=== PATIENT | female | born 1990 | race Caucasian/White ===

== ENCOUNTER 2018-08-12 05:07 | Day surgery (SDC) | payer BC, OTHER ==
[2018-08-11 16:25] VITALS: BMI 39.3
[2018-08-12] MEDS ORDERED: LIDOCAINE HCL/PF 2% SDV 5ML VIAL ONE (09:48)
[2018-08-12] MEDS ORDERED: PROPOFOL 20 ML ONE ×2 (09:49→10:57)
[2018-08-12] MEDS ORDERED: oxyCODONE HCL 5 MG TABLET PO PRN ×3 (10:44→12:32)
[2018-08-12] MEDS ORDERED: ONDANSETRON 4 MG/2 ML VIAL IVPUSH PRN ×2 (10:44→12:32)
[2018-08-12] MEDS ORDERED: LACTATED RINGERS SOLUTION 1,000 ML IV SCH (10:45)
--- NOTE | 2018-08-12 10:50 | HP ---
History & Physical Update - Physical Physical: No Change - Assessment Assessment: No Change - Plan Plan: No Change (H&P reviwed , no cahanges , for hysteroscopy D&C, polypectomy)
[2018-08-12] MEDS ORDERED: MIDAZOLAM HCL 2 MG/2 ML SINGLE DOSE VIAL ONE (10:57)
[2018-08-12] MEDS ORDERED: GLYCOPYRROLATE 0.2 MG/1 ML VIAL ONE (11:07)
[2018-08-12] MEDS ORDERED: KETOROLAC TROMETHAMINE 30 MG/1 ML VIAL ONE (11:18)
[2018-08-12] MEDS ORDERED: IBUPROFEN 600 MG TABLET (FP) PO PRN (12:32)
[2018-08-12] MEDS ORDERED: IBUPROFEN 800 MG/8 ML IJ IVPB PRN (12:32)
[2018-08-12] MEDS ORDERED: ALPRAZolam 0.25 MG TABLET PO PRN (12:44)
[2018-08-12] MEDS ORDERED: ELECTROLYTE-148 SOLN 1,000 ML IV SCH (12:45)
[2018-08-12] MEDS ORDERED: ONDANSETRON 4 MG/2 ML VIAL IVPUSH ONE (13:04)
[2018-08-12] MEDS ORDERED: ONDANSETRON 4 MG/2 ML VIAL ONE (13:05)
--- NOTE | 2018-08-12 13:25 | OP ---
DATE OF OPERATION: 08/12/2018 PREOPERATIVE DIAGNOSES: Menometrorrhagia, severe anemia, endometrial polyp. POSTOPERATIVE DIAGNOSES: Menometrorrhagia, severe anemia, endometrial polyp. PROCEDURE: Hysteroscopy, dilatation and curettage, and polypectomy. SURGEON: Juan M Stoll MD ANESTHESIA: General. ANESTHESIOLOGIST: Rush Santiago MD ESTIMATED BLOOD LOSS: 25 mL DESCRIPTION OF OPERATION: Patient was taken to the operating room. Under adequate general anesthesia, in dorsal lithotomy position, examination under anesthesia revealed the external genitalia to be normal. Vagina was normal. Cervix was clean; no gross lesion. Uterus was normal size. Adnexa: No masses were palpable. Then, with the weighted speculum in the vagina, anterior lip of the cervix was grasped with a single-tooth tenaculum. Uterine cavity was sounded to 9 cm. Then, cervix was slightly dilated. The hysteroscope was introduced. Visualization of endocervical canal appeared to be normal. There were 2 polyps seen in the mid-lower part of the uterus anteriorly. Both cornual regions of the uterus were identified, and tubal ostia were noted. No other abnormality was noted. Endometrium appeared to be thickened and cystic. Then, first, the 2 polyps in the lower-mid body of the uterus were removed, and no active bleeding was seen at the site. Then, endometrium was curetted gently with a smooth curette. Patient tolerated the procedure well, left the OR in good condition. Belle [id number]
[2018-08-12 15:18] VITALS: TEMP 98.2
[2018-08-12 16:14] VITALS: BP 102/55; PULSE 105
--- NOTE | 2018-08-13 16:15 | PATH ---
Surgical Pathology Report Patient Name: ELLIOT GARCIA [facility]. Rec. #: [id number] /Age/Gender: 1990 (Age: 28) / F Account: [id number] Location: [facility] SURGICAL Taken: 08/12/2018 Received: 08/12/2018 Reported: 08/13/2018 Physicians: Juan M Stoll M.D. Specimen(s) Received A: POLYP ENDOMETRIAL B: ENDOMETRIAL CURETTINGS Clinical History Histeroscopy, Polypectomy Final Diagnosis A. ENDOMETRIAL POLYP, EXCISION: ENDOMETRIAL POLYPS. B. ENDOMETRIAL CURETTINGS: FRAGMENTS OF ENDOMETRIAL POLYP. SEPARATE FRAGMENTS OF PROLIFERATIVE ENDOMETRIAL. SEPARATE UNREMARKABLE ENDOCERVICAL TISSUE. Electronically Signed Rohan Trujillo M.D. Gross Description A. Received in formalin labeled "polyp endometrial," is a 2.2 x 1.8 x 0.3 cm aggregate of mantilla-pink, irregular to polypoid portions of soft tissue. The formalin is filtered and the specimen is entirely submitted in one cassette. B. Received in formalin labeled "endometrial curettings," is a 3.7 x 3.3 x 0.4 cm aggregate of mantilla-brown soft tissue fragments admixed with blood clot. The formalin is filtered and the specimen is entirely submitted in 2 cassettes. /08/12/201808/12/2018
== END 2018-08-12 16:15 | disposition home or self-care (01) ==
LOC: JASU-SURG 05:07
PROVIDERS: ATTEND Obstetrics & Gynecology
PROC: 0UJD8ZZ Inspection of Uterus and Cervix, Via Natural or Artificial Opening Endoscopic (ICD-10-PCS; 2018-08-12)
PROC: 0UB97ZX Excision of Uterus, Via Natural or Artificial Opening, Diagnostic (ICD-10-PCS; principal; 2018-08-12 10:30)
PROC: 0UDB7ZX Extraction of Endometrium, Via Natural or Artificial Opening, Diagnostic (ICD-10-PCS; 2018-08-12 10:30)
DX: N92.1 Excessive and frequent menstruation with irregular cycle (principal); D64.9 Anemia, unspecified; N84.0 Polyp of corpus uteri
CPT/HCPCS: 86850; 86900; 86901; 88305-TC; 94760

== ENCOUNTER 2020-03-09 16:14 | Emergency (ER) | payer BC, OTHER ==
[2020-03-09] MEDS ORDERED: KETOROLAC TROMETHAMINE 30 MG/1 ML VIAL IM ONE (16:28)
[2020-03-09] MEDS ORDERED: diazePAM 5 MG TABLET PO ONE (16:30)
[2020-03-09] MEDS ORDERED: KETOROLAC TROMETHAMINE 30 MG/1 ML VIAL ONE (16:32)
[2020-03-09 16:33] VITALS: BP 148/89; PULSE 98; TEMP 98.4; BMI 36.6
[2020-03-09] MEDS ORDERED: diazePAM 5 MG TABLET ONE (16:33)
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
--- NOTE | 2020-03-10 15:30 | EKG ---
Test Reason : Blood Pressure : / mmHG Vent. Rate : 091 BPM Atrial Rate : 091 BPM P-R Int : 144 ms QRS Dur : 080 ms QT Int : 368 ms P-R-T Axes : 048 -10 050 degrees QTc Int : 452 ms NORMAL SINUS RHYTHM NORMAL ECG NO PREVIOUS ECGS AVAILABLE Confirmed by ELEAZAR DEL RIO MD ([id number]) on 03/10/2020 3:29:17 PM Referred By: ALESSANDRO HERNANDEZ Confirmed By:ELEAZAR DEL RIO MD
== END 2020-03-09 18:00 | disposition home or self-care (01) ==
LOC: FER 16:14
PROC: 3E0233Z Introduction of Anti-inflammatory into Muscle, Percutaneous Approach (ICD-10-PCS; principal; 2020-03-09)
DX: M62.838 Other muscle spasm (principal); M79.601 Pain in right arm
CPT/HCPCS: 71046-TC-FY; 93005; 93971; 99285-25

== ENCOUNTER 2020-03-13 07:52 | Emergency (ER) | payer BC, OTHER ==
[2020-03-13 08:05] VITALS: BP 138/82; PULSE 94; TEMP 98.7; BMI 36.6
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
[2020-03-13] MEDS ORDERED: KETOROLAC TROMETHAMINE 60 MG/2 ML VIAL IM ONE (08:59)
[2020-03-13] MEDS ORDERED: hydrOXYzine PAMOATE 25 MG CAPSULE (FP) PO ONE ×2 (08:59→09:08)
[2020-03-13] MEDS ORDERED: METHOCARBAMOL 500 MG TABLET PO ONE (08:59)
[2020-03-13] MEDS ORDERED: METHOCARBAMOL 500 MG TABLET ONE (09:08)
[2020-03-13] MEDS ORDERED: KETOROLAC TROMETHAMINE 60 MG/2 ML VIAL ONE (09:08)
[2020-03-13 09:17] LABS: BASO % 0.5 % (0-2.0); EOS % 1.4 % (0-4.5); HEMOGLOBIN 13.7 GM/dl (10.7-15.3); LYMPH % 16.2 % (8-40); MCHC 32.7 g/dl (32.0-36.0); MEAN CELL VOLUME 88.8 fl (80-96); MONO % 5.6 % (3.8-10.2); NEUT % 76.3 % (42.8-82.8); PLATELET COUNT 273 K/MM3 (134-434); RBC 4.73 M/mm3 (3.60-5.2); RDW 14.8 % (11.6-15.6); WHITE BLOOD COUNT 11.7 K/mm3 (4.0-10.8)
[2020-03-13 09:22] LABS: ALBUMIN 3.8 g/dl (3.4-5.0); BILIRUBIN,TOTAL 0.7 mg/dl (0.2-1); CALCIUM 8.7 mg/dl (8.5-10); CREATININE 0.6 mg/dl (0.55-1.3); POTASSIUM 3.2 mmol/L (3.5-5.1); TOT PROT 6.8 g/dl (6.4-8.2)
[2020-03-13] MEDS ORDERED: POTASSIUM CHLORIDE TABS 20 MEQ TABLET.ER (FP) PO ONE ×2 (09:29→09:41)
--- NOTE | 2020-03-13 12:45 | EKG ---
Test Reason : Blood Pressure : / mmHG Vent. Rate : 098 BPM Atrial Rate : 098 BPM P-R Int : 154 ms QRS Dur : 080 ms QT Int : 340 ms P-R-T Axes : 064 016 037 degrees QTc Int : 434 ms NORMAL SINUS RHYTHM NORMAL ECG WHEN COMPARED WITH ECG OF 09-MAR-2020 16:52, NO SIGNIFICANT CHANGE WAS FOUND Confirmed by Félix Bates ([id number]) on 03/13/2020 12:45:36 PM Referred By: ANANTH PURCELL Confirmed By:Félix Bates
== END 2020-03-13 10:06 | disposition home or self-care (01) ==
LOC: FER 07:52
PROC: 3E0233Z Introduction of Anti-inflammatory into Muscle, Percutaneous Approach (ICD-10-PCS; principal; 2020-03-13)
DX: M79.631 Pain in right forearm (principal); R05 Cough; F41.0 Panic disorder [episodic paroxysmal anxiety]
CPT/HCPCS: 36415; 71046-TC-FY; 73070-TC-RT-FY; 73523-TC-FY; 80053; 82550; 84484; 85025; 93005; 99285-25

== ENCOUNTER 2020-03-25 05:09 | Day surgery (SDC) | payer BC, OTHER ==
[2020-03-24 10:40] VITALS: BMI 34.5
--- OUTSIDE RECORDS SUMMARY | 2020-03-25 05:13 | XMS ---
:1990 Author Organization [facility] Care Team Providers Name Role Phone ALAN YOUNG Unavailable Unavailable EMERGENCY SERVICE, X Unavailable Unavailable Re-disclosure Warning The records that you are about to access may contain information from federally- assisted alcohol or drug abuse programs. If such information is present, then the following federally mandated warning applies: This information has been disclosed to you from records protected by federal confidentiality rules (42 CFR part 2). The federal rules prohibit you from making any further disclosure of this information unless further disclosure is expressly permitted by the written consent of the person to whom it pertains or as otherwise permitted by 42 CFR part 2. A general authorization for the release of medical or other information is NOT sufficient for this purpose. The Federal rules restrict any use of the information to criminally investigate or prosecute any alcohol or drug abuse patient.The records that you are about to access may contain highly sensitive health information, the redisclosure of which is protected by Article 27-F of the [facility] Public Health law. If you continue you may haveaccess to information: Regarding HIV / AIDS; Provided by facilities licensed or operated by the [facility] Office of Mental Health; or Provided by the [facility] Office for People With Developmental Disabilities. If such information is present, then the following [facility] mandated warning applies: This information has been disclosed to you from confidential records which are protected by state law. State law prohibits you from making any further disclosure of this information without the specific written consent of the person to whom it pertains, or as otherwise permitted by law. Any unauthorized further disclosure in violation of state law may result in a fine or group home sentence or both. A general authorization for the release of medical or other information is NOT sufficient authorization for further disclosure. Allergies and Adverse Reactions Type Description Substance Reaction Status Data Source(s ) Drug allergy No Known Drug No Known Drug [facility] Allergies [facility]erg[facility] Encounters Encounter Providers Location Date Indications Data Source(s ) Emergency Attender: 11/23/2019 PAIN ON RIGHT SIDE [facility] HECTOR, 07:38:00 AM [facility] CARLOSAttender: EDT [facility] EMERGENCY SERVICE, XAdmitter: ALAN YOUNG PAIN ON RIGHT SIDE BODY Medications Medication Brand Start Product Dose Route Administrative Pharmacy [facility] Indications Reaction Description Data Name Date Form Instructions Instructions Source(s) Ketorolac UNK complet Ketorolac [place] Tromethamin 2020 MG ed Tromethamine r County e 10 MG O 12:08: 10 MG Oral He alth 18 PM Tablet TAKE Care EDT 1 TABLET Corporatio EVERY 8 n HOURS NEEDED FOR PAIN. Dispense: 9 Cyclobenzap UNK complet Cycloben zapr [place] rine HCl 10 2020 MG ed ine HCl 10 r County MG Oral 12:08: MG Oral Health 18 PM Tablet TAKE Care EDT 1/2 TO 1 Corporatio TABLET 3 n TIMES DAILY NEEDED. Dispense: 9 Khlor-Con Khlor- UNK active Khlor-Co n [place] Packet (Po Con 2020 meq Packet r Count y Packet 09:43: (Potassium Healt h (Po 28 AM Chloride) Care EDT Oral 40 meq Corporat io PO n Medication administered onsite Trazodone trazodone 1 oral completed trazo done [place] Hydrochloride 50 MG tab(s) [facility] Oral Tablet Health C are [Desyrel] trazodone Corporation lisdexamfetamine Vyvanse 1 oral completed Vyvanse [place] dimesylate 30 MG tab(s) C ounty Oral Capsule [facility] [Vyvanse] Corporatio n 24 HR Amphetamine Adderall XR 999 MG oral discontinued Adderall [place] aspartate 5 MG / XR Cou nty Amphetamine Sulfate [facility] 5 MG / Corporation Dextroamphetamine saccharate 5 MG / Dextroamphetamine Sulfate 5 MG Extended Release Oral Capsule [Adderall] Adderall XR Escitalopram 5 MG Lexapro 1 oral completed Lexapro [place] Oral Tablet tab(s) [facility] [Lexapro] Health Car e [place] [facility] [employer] [facility] Insurance Providers Payer Policy type Policy ID Covered Covered alliance party's Policy Pl an name / Coverage alliance party ID relationship to Tubbs Inf ormation type tubbs BC PPO [id number] SP [id number] I CBP [id number] SP [id number] OUTPT BC PPO [id number] SP [id number] I CBP [id number] SP [id number] OUTPT PPO [id number] SP [id number] [id number] Problems, Conditions, and Diagnoses Code Display Name Description Problem Type Effective Dates Data Source(s) R20.2 Paresthesia of PARESTHESIA OF Diagnosis 11/23/2019 [facility] kristopher skin SKIN 07:38:00 AM [facility] Corporati on G89.29 Other chronic OTHER CHRONIC Diagnosis 11/23/2019 [facility] pain PAIN 07:38:00 AM [facility] Corpor[facility] on M54.9 Dorsalgia, DORSALGIA, Diagnosis 11/23/2019 [place] unspecified UNSPECIFIED 07:38:00 AM [facility] Corporati on Results ID Date Data Source [id number] 03/20/2020 01:01:00 PM EDT [facility] Name Value Range Interpretation Description Data Sup porting Code Source(s) Document(s ) SARS [facility] coronavirus 2 RNA This lab was ordered by [facility] and reported by [facility]. Procedure Patient Treatment Plan of Care Planned Activity Planned Date Details Description Data Source (s) Khlor-Con Packet (Po 11/23/2019 09:43:28 [facility] AM [facility] poration
[2020-03-25 10:40] VITALS: TEMP 97.8
[2020-03-25 11:25] VITALS: BP 100/56; PULSE 79
--- NOTE | 2020-03-28 18:54 | PATH ---
Surgical Pathology Report Patient Name: ELLIOT GARCIA [facility]. Rec. #: [id number] /Age/Gender: 1990 (Age: 29) / F Account: [id number] Location: U-ENDOSCOPY Taken: 03/25/2020 Received: 03/25/2020 Reported: 03/28/2020 Physicians: Valeriano Conner M.D. Specimen(s) Received A: DUODENUM B: STOMACH C: ESOPHAGUS Clinical History Occult blood in stool Postop receptor analysis, gastric erosion, gastric ulcer, submucosal cecal nodularity, hemorrhoids Final Diagnosis A. DUODENUM, BIOPSY: DUODENAL MUCOSA WITH NO SIGNIFICANT PATHOLOGIC CHANGE. NO HISTOLOGIC EVIDENCE OF INTRAEPITHELIAL LYMPHOCYTOSIS. B. STOMACH, BIOPSY: GASTRIC MUCOSA WITH CHRONIC GASTRITIS. REACTIVE GASTROPATHY PRESENT. IMMUNOSTAIN FOR H. PYLORI IS NEGATIVE. NEGATIVE FOR INTESTINAL METAPLASIA. C. ESOPHAGUS, BIOPSY: SQUAMOUS MUCOSA WITH NO SIGNIFICANT PATHOLOGIC CHANGE. NO EVIDENCE OF EOSINOPHILIC ESOPHAGITIS. NEGATIVE FOR INTESTINAL METAPLASIA. Electronically Signed Rohan Trujillo M.D. Gross Description A. Received in formalin, labeled "duodenal" are 2 mantilla, irregular soft tissue measuring 0.1 to 0.3 cm. in greatest dimension. The specimen is submitted in toto in one cassette. B. Received in formalin, labeled "stomach" are 2 mantilla soft tissue measuring 0.2 to 0.3 cm. in greatest dimension. The specimen is submitted in toto in one cassette. C. Received in formalin, labeled "esophagus" is a mantilla, irregular soft tissue measuring 0.3 cm. in greatest dimension. The specimen is submitted in toto in one cassette. __ KWS/03/25/2020 aurelio/03/25/2020
== END 2020-03-25 11:20 | disposition home or self-care (01) ==
LOC: JASU-ENDO 05:09
PROVIDERS: ATTEND Internal Medicine Gastroenterology
PROC: 0DJD8ZZ Inspection of Lower Intestinal Tract, Via Natural or Artificial Opening Endoscopic (ICD-10-PCS; principal; 2020-03-25 10:00)
DX: K92.1 Melena (principal); K64.8 Other hemorrhoids
CPT/HCPCS: 81025; 88305-TC; 88342-TC

== ENCOUNTER 2021-09-21 19:39 | Emergency (ER) | payer BC, OTHER ==
[2021-09-21 19:57] VITALS: BP 119/71; PULSE 87; TEMP 99.8; BMI 34.5
[2021-09-21] MEDS ORDERED: CYCLOBENZAPRINE HCL 10 MG TABLET (FP) PO ONE (20:51)
[2021-09-21] MEDS ORDERED: ACETAMINOPHEN 325 MG TABLET (FP) PO ONE (20:51)
[2021-09-21] MEDS ORDERED: ACETAMINOPHEN 325 MG TABLET (FP) ONE (20:55)
[2021-09-21] MEDS ORDERED: CYCLOBENZAPRINE HCL 5 MG TABLET ONE (20:55)
[2021-09-21 21:32] LABS: EPITHELIAL CELLS MODERATE /hpf
== END 2021-09-21 22:32 | disposition home or self-care (01) ==
LOC: FER 19:39
DX: S39.012A Strain of muscle, fascia and tendon of lower back, initial encounter (principal); X50.9XXA Other and unspecified overexertion or strenuous movements or postures, initial encounter
CPT/HCPCS: 71046-TC-FY; 81003; 81015; 84703; 99284-25